=== PATIENT | male | born 1985 | race Caucasian/White ===

== ENCOUNTER 2018-10-16 12:12 | Emergency (ER) | payer OTHER, SELFPAY ==
[~2018-10-16] VITALS: Ht 175.3 cm; Wt 72.7 kg
[2018-10-16 12:12] VITALS: BP 148/81
== END 2018-10-16 14:26 | disposition left against medical advice (07) ==
LOC: M ED 12:12
DX: M54.2 Cervicalgia (principal); Y04.8XXA Assault by other bodily force, initial encounter; Y07.9 Unspecified perpetrator of maltreatment and neglect; Y92.9 Unspecified place or not applicable; Z53.29 Procedure and treatment not carried out because of patient's decision for other reasons

== ENCOUNTER → 2020-02-05 | Outpatient (CLI) | payer SELFPAY | LOC: M LABSMTC 11:08 | PROVIDERS: ATTEND Pediatrics | DX: Z20.828 Contact with and (suspected) exposure to other viral communicable diseases (principal) ==